=== PATIENT | female | born 1970 | race Caucasian/White ===

== ENCOUNTER → 2017-06-28 | Emergency (ER) | payer MEDICARE ==
[~2017-06-28] VITALS: Ht 180.3 cm; Wt 72.6 kg
[~2017-06-28] MED LIST: ACID REDUCER75 MG PO; ESTRACE2 MG PO; NAPROXEN250 MG PO; SERTRALINE HCL50 MG PO; SPIRONOLACTONE100 MG NG; [UNRECOGNIZED DRUG - OTHER] PO
== END | disposition home or self-care (01) ==
LOC: ED 20:42
DX: L29.8 Other pruritus (principal); T49.8X5A Adverse effect of other topical agents, initial encounter; F17.200 Nicotine dependence, unspecified, uncomplicated; Z79.899 Other long term (current) drug therapy
CPT/HCPCS: 99282; Q0163

== ENCOUNTER 2017-09-14 16:07 | Emergency (ER) | payer MEDICARE ==
[~2017-09-14] VITALS: Ht 180.3 cm; Wt 72.6 kg
== END 2017-09-14 19:10 | disposition home or self-care (01) ==
LOC: ED 16:07
DX: J40 Bronchitis, not specified as acute or chronic (principal); F17.200 Nicotine dependence, unspecified, uncomplicated; Z79.899 Other long term (current) drug therapy
CPT/HCPCS: 71046; 99283